=== PATIENT | female | born 1965 | race Caucasian/White ===

== ENCOUNTER 2023-10-26 15:46 | Emergency (ER) | payer OTHER, SELFPAY ==
[2023-10-26 15:49] VITALS: BP 144/91; PULSE 109; RESP 104; TEMP 36.2; O2SAT 98; BMI 22.5
--- NOTE | 2023-10-26 15:53 | ED_ITS ---
HPI - General Adult General Chief complaint: Extremity Pain/Injury, Upper Stated complaint: slammed L hand in tractor door Time Seen by Provider: 10/26/23 15:53 History of Present Illness HPI narrative: left index finger caught in door slammed L hand in tractor door 58-year-old woman presenting to the emergency department with complaint of left hand pain. This has been rather difficult afternoon. Sounds like had been having a difficult conversation with her who accompanies her here today. Hand pain was tremendous. Worried that had taken off part of her finger. Would appreciate something for pain. No other injury sustained. Worried and upset. In discussing treatment feels would benefit from something to help calm her down. Related Data Home Medications ?Medication ?Instructions ?Recorded ?Confirmed dextroamphetamine-amphetamine ER 1 cap PO BID 10/26/23 10/26/23 30 mg 24hr capsule,extend release (Adderall XR) escitalopram oxalate 10 mg tablet 10 mg PO DAILY 10/26/23 10/26/23 Allergies Allergy/AdvReac Type Severity Reaction Status Date / Time No Known Drug Allergies Allergy Verified 10/26/23 15:51 Review of Systems Status of ROS: Reports: 6 or more systems reviewed and unremarkable except as noted in History and below PFSH PFSH Social History Non-prescribed substance use: denies use Exam Narrative: Exam Narrative: Pleasant. Carefully groomed. Clearly has been crying. Favoring left hand. Index finger in question with laceration adjacent to the nail extending under the nail. Swollen. Oozing blood. Nail is mostly still adhered. Laceration primarily along radial side. Extending proximally 1 cm and then under the nail crossing diagonally. Partial nail avulsion. Const: Vital Signs, click to edit/add: Vital Signs - 24 hr 10/26/23 15:49 Temperature 97.1 F L Pulse Rate [Right Pulse Oximeter] 109 H Respiratory Rate 104 H Blood Pressure [Ri ght Upper Arm] 144/91 H Pulse Oximetry 98 Oxygen Delivery Me thod Room Air Documenting provider has reviewed patient's vital signs: yes Course Vital Signs Vital signs: Initial Vital Signs Temperature 97.1 F L 10/26/23 15:49 Temperature Source Temporal Artery Scan 10/26/23 15:49 Pulse Rate 109 H 10/26/23 15:49 Respiratory Rate 104 H 10/26/23 15:49 Blood Pressure 144/91 H 10/26/23 15:49 Blood Pressure Mean 108 H 10/26/23 15:49 Blood Pressure Position Sitting 10/26/23 15:49 Pulse Oximetry 98 10/26/23 15:49 Oxygen Delivery Method Room Air 10/26/23 15:49 Vital Signs Temperature 97.1 F L 10/26/23 15:49 Pulse Rate 109 H 10/26/23 15:49 Respiratory Rate 104 H 10/26/23 15:49 Blood Pressure 144/91 H 10/26/23 15:49 Pulse Oximetry 98 10/26/23 15:49 Oxygen Delivery Method Room Air 10/26/23 15:49 Temperature 97.1 F L 10/26/23 15:49 Pulse Rate 75 10/26/23 18:23 Respiratory Rate 16 10/26/23 18:23 Blood Pressure 124/78 10/26/23 18:23 Pulse Oximetry 95 10/26/23 18:23 Oxygen Delivery Method Room Air 10/26/23 18:23 Medications Administered Medications: Discontinued Medications Generic Name Dose Route Start Last Admin Trade Name Farhat PRN Reason Stop Dose Admin Bupivacaine HCl 10 ml 10/26/23 15:58 10/26/23 16:14 Bupivacaine 0.25% 30 Ml INJECTION 10/26/23 15:59 10 ml ONCE ONE Administration Lorazepam 1 mg 10/26/23 16:03 10/26/23 16:13 Lorazepam 2 Mg/Ml Inj IM 10/26/23 16:04 1 mg ONCE ONE Administration Medical Decision Making MDM Narrative Medical decision making narrative: Would like something to help relax and to deal with her pain. Given injection of lorazepam and I did a digital block with bupivacaine. Good anesthesia achieved. Would be interested to know whether not there is a fracture distal finger. This would qualify as an open fracture in this case. X-ray of the left index finger reviewed by me does show looks to be a comminuted fracture of the distal aspect/tuft of the distal phalanx. Radiology over-read as below Study:?XRay-Extremity Left 2ND DIGIT-10/26/2023 4:51:28 PM Ordering Physician:?DR. OVIEDO Final Report: INDICATION: Finger slammed in tractor door. Technique : Three-view study left 2nd finger. FINDINGS: Comminuted fracture tuft terminal phalanx index finger. No radiopaque foreign bodies. Cleansed further with Hibiclens and water solution. Stabilized nail/closed with 5 0 Ethilon suture She would like some pain medication particularly for tonight. Also provided with finger Stax splint. See patient discharge plan for further discussion/plan Discharge Plan Discharge Clinical Impression: Crush injury to finger, Finger laceration Patient Disposition: Home w/ Parent or Adult Condition: Improved Additional Instructions: Ibuprofen up to 800 mg per dose, acetaminophen up to 1000 mg per dose, elevation for comfort. Might want to place your hand on a pillow at night. sutures out in 10 days. antibiotic ointment for 5 days and then to a dry dressing. put the splint on as supplied as soon as possible and I would wear it for about 3 weeks or so particularly in circumstances where you might forget about it and bump your finger causing pain ok to get wet but try not to soak while sutures are in. watch for spreading redness after 2 days accompanied by heat, swelling, marked increase in pain, purulent drainage. [place] from [facility] as discussed that you could take if needed the next night or two. Cephalexin as an antibiotic also from [facility] to prevent infection as this is technically an open fracture. Prescriptions: No Action dextroamphetamine-amphetamine [Adderall XR] 30 mg capsule,extended release 24hr 1 cap PO BID escitalopram oxalate 10 mg tablet 10 mg PO DAILY Follow Up/Referrals: Provider,Not a Local [Primary Care Provider] - Stand Alone Forms: MyHealth Info Instructions
[2023-10-26] MEDS: LORazepam 2 MG/ML inj 1 MG IM (16:13)
[2023-10-26] MEDS: BUPIVACAINE 0.25% 30 ML 10 ML INJECTION (16:14)
--- NOTE | 2023-10-26 16:37 | XR_ITS ---
Patient: RONI MENENDEZ Facility:?[facility] Patient ID:?[id number] Site Patient ID:?[id number]. Site :?[id number] Study:?XRay-Extremity Left 2ND DIGIT-10/26/2023 4:51:28 PM Ordering Physician:?DR. OVIEDO Final Report: INDICATION: Finger slammed in tractor door. Technique : Three-view study left 2nd finger. FINDINGS: Comminuted fracture tuft terminal phalanx index finger. No radiopaque foreign bodies. Dictated by Wiliam Bhardwaj MD @ 10/26/2023 5:11:05 PM Signed by:?Wiliam Bhardwaj MD @10/26/2023 5:11:05 PM (Electronic Signature)
[2023-10-26 18:23] VITALS: BP 124/78; PULSE 75; RESP 16; O2SAT 95
== END 2023-10-26 18:31 | disposition home or self-care (01) ==
PROVIDERS: Emergency Provider Family Medicine
DX: S61.311A Laceration without foreign body of left index finger with damage to nail, initial encounter (principal); S62.661A Nondisplaced fracture of distal phalanx of left index finger, initial encounter for closed fracture; W23.0XXA Caught, crushed, jammed, or pinched between moving objects, initial encounter
CPT/HCPCS: 12001; 73140; 99283; 99284; J0665; J2060